=== PATIENT | female | born 1950 | race Caucasian/White ===

== ENCOUNTER 2019-07-18 07:02 | Inpatient (IN) | payer MEDICARE ==
[2019-06-28 07:28] LABS: HEMATOCRIT 43.9 % (37.0-47.0); HEMOGLOBIN 14.9 gm/dL (12.0-15.0); MCH 31.5 pg (26.0-34.0); MCV 92.5 fL (80.0-100.0); RBC 4.74 mil/uL (4.20-5.00); RDW-CV 14.2 % (10.5-14.5); WBC 6.2 thou/uL (4.0-11.0)
[2019-06-28 07:29] LABS: URINE BILIRUBIN NEGATIVE (Negative); URINE BLOOD NEGATIVE (Negative); URINE CLARITY CLEAR; URINE COLOR YELLOW; URINE GLUCOSE-RANDOM NEGATIVE (Negative); URINE KETONES NEGATIVE (Negative); URINE LEUKOCYTES-REFLEX 1+ (Negative); URINE PROTEIN NEGATIVE (Negative); URINE UROBILINOGEN 0.2 E.U./dl (0.2-1.0)
[2019-06-28 07:30] LABS: URINE NITRITE-REFLEX POSITIVE (Negative)
[2019-06-28 07:49] LABS: BACTERIA-REFLEX >30 Many /HPF (None Seen); CASTS None Seen /LPF (None Seen); CRYSTALS None Seen /LPF (None Seen); MUCUS None Seen strn/LPF (None Seen); SQUAMOUS 0-3 Few /LPF (0-3); URINE RBC 3-10 Few /HPF (0-2); URINE WBC-REFLEX 6-15 Few /HPF (0-5)
[2019-06-28 07:55] LABS: ALBUMIN 3.8 g/dL (3.4-5.0); CALCIUM 10.1 mg/dL (8.5-10.1); CREATININE 0.8 mg/dL (0.6-1.3); POTASSIUM 4.3 mmol/L (3.5-5.1); TOTAL BILIRUBIN 0.8 mg/dL (<0.1-1.0); TOTAL PROTEIN 7.3 g/dL (6.4-8.2)
--- NOTE | 2019-06-28 14:12 | EKG ---
[place] [address] ELECTROCARDIOGRAM REPORT Name: KEESHA RAMON Room: PRE IN ..#: [id number] Admission: Attend Phys: Caridad Allison Discharge: Date of : 46 Report #: [id number] THIS REPORT FOR: //name// [facility] Test Date: 2019-06-28 Test Time: 08:47:05 Pat Name: KEESHA RAMON Department: Room: Gender: F [employer] [place]: : 1950 Requested By: Isra Villar Order Number: [id number] Reading MD: Oh Hall Measurements Intervals [place] Rate: 77 P: 54 IA: 165 QRS: 46 QRSD: 111 T: 72 QT: 416 QTc: 471 Interpretive Statements Sinus rhythm Inferior infarct, old possible No previous ECG available for comparison Electronically Signed On 06-28-2019 14:12:27 CHIEF ESTIMATOR by Oh Hall [email or web address] <ELECTRONICALLY SIGNED> By: Oh Hall MD, [facility] 06/28/19 1412 [id number] [id number] Oh Hall MD, FACC /EPI
[~2019-07-18] VITALS: Ht 157.5 cm; Wt 93.4 kg
[~2019-07-18 07:02] MED LIST: COZAAR100 MG PO; HYDROCHLOROTH12.5 M1 PO; OMEPRAZOLE 20 M20 M1 PO
[2019-07-18 07:30] VITALS: BP 134/76
[2019-07-18 14:00] VITALS: BP 135/77
--- NOTE | 2019-07-18 15:53 | NUR ---
PT ALERT AND ORIENTED. PT VOICE HARSH BUT REGAINING VOICE BLOCK WEARS OFF. PAIN MEDS GIVEN ORDERED. PT ORIENTED TO ROOM. PT DENIED ANY FURTHER QUESTIONS OR NEEDS. FALL RISK PRECAUTIONS IN PLACE. WILL CONTINUE TO MONITOR.
--- NOTE | 2019-07-18 17:38 | NUR ---
PT REMAINED ALERT AND ORIENTED. PT UP WITH THERAPY. PAIN MEDS GIVEN ORDERED. FALL RISK PRECAUTIONS IN PLACE. HOURLY ROUNDING COMPLETED. WILL CONTINUE TO MONITOR.
[2019-07-19 01:25] VITALS: BP 111/62
[2019-07-19 04:00] VITALS: BP 110/60
--- NOTE | 2019-07-19 06:52 | NUR ---
PATIENT HAS RESTED WELL THROUGHOUT MOST OF THE NIGHT. VSS ON 4L 02 VIA NASAL CANNULA. PAIN WELL CONTROLLED. MEDICATIONS GIVEN ORDERED AND CHARTED. DRESSING AND IMMOBILIZER IN PLACE AND DRESSING IS C/D/I. POLAR PACK AND SCD'S IN PLACE. PATIENT UP WITH ASSIST X 1 TO THE BATHROOM. IV IN RIGHT HAND-SL. IV ABT GIVEN WITHOUT ANY ADVERSE SIDE EFFECTS NOTED. PATIENT INSTRUCTED TO USE CALL LIGHT WHEN NEEDING ASSISTANCE. HOURLY ROUNDS MADE. WILL CONTINUE WITH PLAN OF CARE AND NURSING TO MONITOR.
[2019-07-19 07:20] VITALS: BP 114/77
--- NOTE | 2019-07-19 10:49 | OP ---
[facility] [address] [place] [address] OPERATIVE REPORT Name: KEESHA RAMON Room: [address] IN M.R.#: [id number] Admission: 07/18/19 Attend Phys: Caridad Allison Discharge: Date of : 46 Report #: [id number] THIS REPORT FOR: //name// CC: Giovana Villegas DATE OF SERVICE: 07/18/2019 PREOPERATIVE DIAGNOSIS: Left shoulder osteoarthritis. POSTOPERATIVE DIAGNOSIS: Left shoulder osteoarthritis. PROCEDURE: Left reverse total shoulder arthroplasty. SURGEON: Isra Villar II, DO. FISH MACHINE FEEDER: KAMILLE Miller. ANESTHESIA: Per operative record. ESTIMATED BLOOD LOSS: Minimal. ANTIBIOTICS: Per operative record. DRAINS: None. COMPLICATIONS: None. CONDITION: Stable to recovery room. DESCRIPTION OF PROCEDURE: The patient was taken to the operative suite and placed supine on the operative table, given appropriate anesthesia. The patient's affected shoulder was sterilely prepped and draped in modified beach chair position and all bony prominences well padded. Surgery begun by an anterior deltopectoral incision. This was carried down to the subcutaneous tissues. The cephalic vein and deltoid were then injected laterally and the deltopectoral approach was opened down to the anterior aspect of the shoulder. The subscapularis was then reflected off the anterior aspect of the humerus and retracted with a tag stitch in this area back to the glenoid. The humerus was then released through the inferior portion of the capsule as well as around to the posterior aspect to allow for the head to be gently dislocated. The head was then opened on the proximal aspect for the starter awl, the awl was then introduced down into the canal of the humerus and broached in sequential fashion up to appropriate size. This was then left in place with the appropriate awl, the head alignment guide was then applied, checked [place] [address] OPERATIVE REPORT Name: KEESHA RAMON Room: [address] IN [facility]#: [id number] Admission: 07/18/19 Attend Phys: Caridad Allison Discharge: Date of : 46 Report #: [id number] the arm, pinned in appropriate position and appropriate cut was made to remove the excess portion of the head, with the appropriate cut made. A bone preserving hubcap was then placed over the top of the humerus and it was retracted posteriorly in the shoulder to expose the glenoid. Excess labrum was removed and all capsular release was performed around the glenoid in appropriate fashion. Retractors were placed around the glenoid. The glenosphere alignment tool was then applied and the guide pin was then placed in the center inferior aspect of the glenoid. It was then reamed in appropriate fashion down to punctate bleeding throughout the glenoid bone. Irrigation was performed to remove excess bone debris. The appropriate glenosphere was then placed over the extensor screw, which was measured and this was then taken through the center portion of the glenoid through the cancellous tissue with bicortical purchase. The glenosphere was aligned and four appropriate locking screws were then placed through the superior, inferior as well as anterior and posterior portions of the glenoid and glenosphere. This was probed and shown to be intact with excellent compression along the glenoid bone. An eccentric size 36 glenosphere was then selected and malleted in position. Attention was then turned back to the humerus, which was broached up to the appropriate size. This broach was left in place and was trialed with the appropriate polyethylene spacers. Once the appropriate size had been selected, the finals were then malleted into position on the back table in a monoblock procedure and then malleted down the humerus in appropriate fashion. This was then reduced with excellent anatomic movement of the shoulder and no evidence of dislocation. Irrigation was then performed of the wound, it was then drained of fluid. The subscapularis tendon was then reapproximated and sutured in place with 1 Vicryl. The deltopectoral interval was then closed and loosely approximated with 1 Vicryl. Skin was closed with 2-0 Vicryl and running Monocryl stitch. Dermabond and sterile dressing applied. The patient's arm had full range of motion at the closure of the case with no evidence of dislocation. It was then placed in a sling and transported to recovery room in stable condition. Counts were correct x 2. <ELECTRONICALLY SIGNED> By: Isra Villar II, DO 07/19/19 1049 [id number] Villar II, DO /nt
[2019-07-19 11:33] VITALS: BP 114/77
--- NOTE | 2019-07-19 11:34 | NUR ---
MET WITH PT AND DTR/PINO TO DISCUSS HOME SITUATION/DC PLANNING. PT LIVES WITH SON AND DIL. DTR PINO LIVES NEARBY AND WILL BE ASSISTING PT AT DC. PT IS NORMALLY INDEPENDENT AND ACTIVE. HAS IMMOBILIZER ON LEFT ARM, HAD QUESTIONS ABOUT CARE AND STOCKINGS. NURSE AWARE AND WILL DISCUSS WITH PT. PT PLANS OT RETURN HOME AT DC WITH HH, DISCUSSED OPTIONS AND CHOSE [facility]. CALLED AND FAXED INITIAL REF TO MARGRET/[facility]. AWAIT FINAL ORDERS AND WILL FAX. CALLED IN [employer] SCRIPT TO [facility], COPAY IS $177.32, NOTIFIED PT AND DTR WHO IS [employer], GAVE DISCOUNT CARD. SHE PLANS TO CALL [facility] TO SEE IF CARD IS ELIGIBLE, WILL NOTIFY NURSE IF PT NOT ABLE TO AFFORD COST. NO OTHER NEEDS IDD
[2019-07-19] MEDS ORDERED: NORCO 5-325 TA1 EAC1 PO (11:45)
[2019-07-19] MEDS ORDERED: COLACE100 MG PO (11:46)
[2019-07-19] MEDS ORDERED: XARELTO10 M1 PO (11:46)
[2019-07-19 11:51] VITALS: BP 114/77
[2019-07-19 13:32] VITALS: BP 114/77
--- NOTE | 2019-07-19 13:33 | NUR ---
PT GIVEN DISCHARGE INFORMATION, CARE NOTES, AND PRESCRIPTIONS. IV REMOVED. PT BELONGINGS GATHERED. PT LEFT VIA WHEELCHAIR WITH NURSING STAFF TO HOME WITH HOME HEALTH. FALL RISK PRECAUTIONS IN PLACE. HOURLY ROUNDING COMPLETED. WILL CONTINUE TO MONITOR.
== END 2019-07-19 13:34 | disposition home health service (06) | DRG 483 ==
LOC: M.TBA 07:02 → M.ORTHSURG 07:02 → M.PRE 10:56 → M.ORTHSURG 13:47 → M.PRE 13:59 → M.ORTHSURG 07-19 13:34
PROVIDERS: Orthopaedic Surgery; ADMIT Internal Medicine
PROC: 0RRK00Z Replacement of Left Shoulder Joint with Reverse Ball and Socket Synthetic Substitute, Open Approach (ICD-10-PCS; principal; 2019-07-18)
DX: M19.012 Primary osteoarthritis, left shoulder (principal); I10 Essential (primary) hypertension; Z96.653 Presence of artificial knee joint, bilateral; K21.9 Gastro-esophageal reflux disease without esophagitis; K27.9 Peptic ulcer, site unspecified, unspecified as acute or chronic, without hemorrhage or perforation; E66.9 Obesity, unspecified; Z82.49 Family history of ischemic heart disease and other diseases of the circulatory system; Z91.048 Other nonmedicinal substance allergy status; Z79.899 Other long term (current) drug therapy; Z90.49 Acquired absence of other specified parts of digestive tract; Z68.37 Body mass index [BMI] 37.0-37.9, adult